=== PATIENT | male | born 1985 | race Caucasian/White ===

== ENCOUNTER 2022-01-05 10:11 | Emergency (ER) | payer OTHER ==
[~2022-01-05] VITALS: Ht 182.9 cm; Wt 79.4 kg
--- NOTE | 2022-01-05 10:21 | NUR ---
TO ER BED 13, [id number] AND [employer] IN CUSTODY C/O MOUTH ABCESS AND PAIN 03/01, AAOX3, BREATHING EVEN AND NON LABORED, [employer] AT BEDSIDE, AWAITING MD ORDERS
--- NOTE | 2022-01-05 10:31 | NUR ---
DR ANDERS AT BEDSIDE
[2022-01-05] MEDS ORDERED: NAPR-1164 PO (10:43)
[2022-01-05] MEDS ORDERED: AMOX-430 PO (10:43)
[2022-01-05] MEDS ORDERED: LIDO30JE4 TP (10:47)
[2022-01-05] MEDS ORDERED: NAPROXEN 250 MG TABLET ONE (10:52)
[2022-01-05] MEDS ORDERED: LIDOCAINE VISCOUS 2% UD 15 ML UDC ONE (10:52)
[2022-01-05] MEDS ORDERED: NAPROXEN 500 MG TABLET PO SCH (11:00)
[2022-01-05] MEDS ORDERED: LIDOCAINE VISCOUS 2% UD 15 ML UDC MM ONE (11:00)
--- NOTE | 2022-01-05 11:03 | NUR ---
Patient discharged in custody of Officer Lisandro of [facility] Er in stable condition. Written and verbal after care instructions given. Patient and Officer verbalizes understanding of instruction.
[2022-01-05 11:04] VITALS: BP 122/80
== END 2022-01-05 11:04 | disposition home or self-care (01) ==
LOC: ER 10:14
DX: K05.219 Aggressive periodontitis, localized, unspecified severity (principal); K08.89 Other specified disorders of teeth and supporting structures